=== PATIENT | female | born 1950 | race Caucasian/White ===

== ENCOUNTER 2024-11-17 10:03 | Outpatient (CLI) | payer MEDICARE, MEDICAID ==
--- NOTE | 2024-11-17 12:24 | RADIOLOGY REPORT ---
Indication: R/O METASTATIC DISEASE;INTRA-ABDOMINAL AND PELVIC SWELLING, MASS AND LUMP Technique: CT axial images of the chest abdomen and pelvis are obtained without contrast. Coronal and sagittal reformats were obtained. Radiation Dose Information: CTDI volume is 12.3 mGy. Dose-length product is 1180 mGy*cm Comparison: None FINDINGS: There is limited interpretation of the chest, abdomen and pelvis without administration of intravenou s contrast. The trachea is patent. There is a loculated small left hydro pneumothorax /loculated effusion with ai r components. Postsurgical changes versus calcifications in the left lower lobe. Right upper lobe solid nodule measuring 7 mm. Right lower lobe atelectasis/consolidation. Small right pleural effusion. There is left upper lobe pulmonary nodule with punctate calcifications measuring 5 mm. Left lower lobe consolidation/atelectasis. Heart normal in size. Small to moderate pericardial effusion. Left paratracheal lymph node measuring 1.4 cm. Aortopulmonary lymph node measuring 10 mm. Pretrachea l lymph node measuring 11 mm. No supraclavicular or axillary lymphadenopathy. Left breast/chest wall subcutaneous thickening. Adrenal glands, spleen and pancreas unremarkable in shape. Cholelithiasis. Liver is unremarkable in shape. The bilateral kidneys demonstrate no hydronephrosis, nephrolithiasis. Stomach is partially distended. Small bowel loops are normal in caliber. Colonic diverticular disease. Large volume stool throughout the colon. Normal appendix. Rectal wall thickening. Right ovarian/ adnexal cystic lesion measuring 2.3 cm. Abdominal aortic atherosclerotic disease. Bladder is partially decompressed by Johnson catheter. No inguinal lymphadenopathy. No aggressive osseous process. [id number] bilateral sacroiliac degenerative joint disease. [employer] edinson appearing L1 compression deformity with 20% loss height. [id number] thoracolumbar degenerat arlyn disc disease. IMPRESSION: Limited evaluation without contrast. 1. Small left loculated hydropneumothorax/loculated effusion with air components with adjacent postsu rgical changes versus calcifications. Correlate with clinical history to evaluate for malignant effu sions , infectious, inflammatory etiologies. 2. Pulmonary nodules up to 7 mm. Evaluate for metastatic disease and other etiologies. 3. Small right pleural effusion. 4. Bilateral lower lobe atelectasis / consolidation. 5. Small to moderate pericardial effusion. 6. Mediastinal lymphadenopathy as described. 7. Left breast/ chest wall subcutaneous thickening. Correlate for cellulitis, carcinoma and other jaylen ologies. 8. Rectal wall thickening. Recommend GI consultation for further evaluation. 9. Colonic diverticular disease. Large volume stool throughout the colon. 10. Cholelithiasis 11. Right ovarian/ adnexal cystic lesion measuring 2.3 cm. 12. Other findings as described
== END 2024-11-17 23:59 | disposition home or self-care (01) ==
LOC: RAD 10:03
PROVIDERS: ATTEND Internal Medicine
DX: K57.30 Diverticulosis of large intestine without perforation or abscess without bleeding (principal); R19.09 Other intra-abdominal and pelvic swelling, mass and lump; R91.1 Solitary pulmonary nodule; J93.83 Other pneumothorax; I31.39 Other pericardial effusion (noninflammatory); K80.20 Calculus of gallbladder without cholecystitis without obstruction
CPT/HCPCS: 71250; 74176